=== PATIENT | female | born 1975 | race Caucasian/White ===

== ENCOUNTER 2023-05-01 07:33 | Outpatient (CLI) | payer OTHER ==
[2023-05-01 08:18] LABS: HEMATOCRIT 38.4 % (36.0-45.00); HEMOGLOBIN 12.8 g/dL (12.0-15.00); MEAN CELL VOLUME 87.7 fL (80.00-100.00); MEAN CORPUSCULAR HEMOGLOBIN 29.2 pg (27.00-32.0); MEAN CORPUSCULAR HGB CONC 33.3 g/dl (32.0-36.0); PLATELET COUNT 300 K/uL (150-450); RED BLOOD COUNT 4.38 M/uL (4.00-6.00); RED CELL DISTRIBUTION WIDTH 14.2 % (11.5-14.5)
[2023-05-01 08:20] LABS: PH,URINE 5.5 (5.0-8.0); URINE APPEARANCE Clear; URINE BILIRRUBIN Negative (NEGATIVE); URINE BLOOD Negative; URINE COLOR Yellow; URINE GLUCOSE Negative (NEGATIVE); URINE LEUKOCYTE Negative; URINE NITRATE Negative; URINE PROTEIN Negative (NEGATIVE); URINE UROBILINOGEN 0.2 E.U./dl
[2023-05-01 08:24] LABS: URINE BACTERIA 2649.6 uL (0.0-1933); URINE EPITHELIAL CELLS 23.8 uL (0.0-38.8); URINE RBC 10.6 uL (0.0-20.8); URINE WBC 14.6 uL (0.0-23.2)
[2023-05-01 08:54] LABS: ALBUMIN 3.7 gm/dL (3.4-5.0); ALKALINE PHOSPHATASE 76 U/L (50-136); ALT/SGPT 24 U/L (12-78); ANION GAP 3 (10.0-20.0); AST/SGOT 12 U/L (15-37); BILIRUBIN TOTAL 0.35 mg/dL (0.3-1.2); BLOOD UREA NITROGEN 14 mg/dL (7-18); BUN CREA RATIO 16 (7.0-25.0); CALCIUM 9.4 mg/dL (8.5-10.1); CARBON DIOXIDE 30 mEq/L (21-32); CHLORIDE 108 mmol/L (98-107); CHOLESTEROL 180 mg/dL (0-200); GFR 66.83; GLOBULINA 3.7 G/DL (2.4-3.5); GLUCOSE FASTING 117 mg/dL (65-100); HDL 61 mg/dl (40-60); LDL 105 mg/dl (0-130); OSMOLALITY SERUM 275 MOSM/KG (275-295); POTASSIUM 4.41 mEq/L (3.5-5.1); SODIUM 137 mmol/L (136-145); TOTAL PROTEIN 7.4 gm/dL (6.4-8.2); TRIGLYCERIDES 72 mg/dL (0-150); VLDL 14 (0-39)
[2023-05-01 09:11] LABS: C-REACTIVE PROTEIN < 0.29 MG/DL (0.00-0.29)
== END 2023-05-01 07:34 | disposition home or self-care (01) ==
LOC: LAB 07:33
PROVIDERS: ATTEND Obstetrics & Gynecology
DX: I10 Essential (primary) hypertension (principal); E03.8 Other specified hypothyroidism; E78.41 Elevated Lipoprotein(a); Z12.11 Encounter for screening for malignant neoplasm of colon; N30.00 Acute cystitis without hematuria; E55.9 Vitamin D deficiency, unspecified

== ENCOUNTER 2023-05-01 08:37 | Outpatient (CLI) | payer OTHER | END 2023-05-01 08:43 | disposition home or self-care (01) | LOC: MAMO-SONO 08:37 | PROVIDERS: ATTEND Obstetrics & Gynecology | DX: N60.11 Diffuse cystic mastopathy of right breast (principal); N60.12 Diffuse cystic mastopathy of left breast; R10.2 Pelvic and perineal pain ==

== ENCOUNTER → 2023-05-07 08:41 | Outpatient (CLI) | payer OTHER ==
[2023-05-07 11:56] LABS: ob NEGATIVE (NEGATIVE)
== END | disposition home or self-care (01) ==
LOC: LAB 08:41
PROVIDERS: ATTEND Obstetrics & Gynecology
DX: I10 Essential (primary) hypertension (principal); E03.8 Other specified hypothyroidism; Z12.11 Encounter for screening for malignant neoplasm of colon; N30.00 Acute cystitis without hematuria; E55.9 Vitamin D deficiency, unspecified

== ENCOUNTER 2024-09-16 07:43 | Outpatient (CLI) | payer OTHER ==
[2024-09-16 08:32] LABS: BASO % 0.6 % (0.1-1.2); EOS # 0.06 (0.04-0.54); EOS % 1.1 % (0.7-7.0); LYMPH # 1.30 (1.18-3.74); LYMPH % 24.6 % (19.3-53.1); MEAN PLATELET VOLUME 10.00 fl (9.4-12.4); MONO # 0.45 (0.24-0.82); MONO % 8.5 % (4.7-12.5); NEUT # 3.43 (1.56-6.13); NEUT % 64.8 % (34.0-71.1); RED CELL DISTRIBUTION WIDTH 13.2 % (11.6-14.4)
[2024-09-16 08:35] LABS: URINE APPEARANCE Clear; URINE BACTERIA 277.1 uL (0.0-1933); URINE BILIRRUBIN Negative (NEGATIVE); URINE BLOOD Negative; URINE COLOR Yellow; URINE EPITHELIAL CELLS 16.4 uL (0.0-38.8); URINE GLUCOSE Negative (NEGATIVE); URINE KETONE Negative (NEGATIVE); URINE LEUKOCYTE Negative; URINE NITRATE Negative; URINE PROTEIN Negative (NEGATIVE); URINE RBC 3.6 uL (0.0-20.8); URINE UROBILINOGEN 0.2 E.U./dl; URINE WBC 6.6 uL (0.0-23.2)
[2024-09-16 08:38] LABS: URINE CAST 0.00 uL (0.0-1.40)
[2024-09-16 09:41] LABS: ALT/SGPT 42.0 U/L (12-78); AST/SGOT 37.0 U/L (15-37); BILIRUBIN TOTAL 0.47 mg/dL (0.3-1.2); BUN CREA RATIO 16.0 (7.0-25.0); CHOL HDL RATIO 3.3 (0-5.0); CREATININE SERUM 0.7 mg/dL (0.55-1.02); GFR 88.57; GLOBULINA 3.8 G/DL (2.4-3.5); GLUCOSE FASTING 98.0 mg/dL (65-100); HDL 57.0 mg/dl (40-60); LDL 107.0 mg/dl (0-130); OSMOLALITY SERUM 279.0 MOSM/KG (275-295); TSH 1.58 uIU/mL (0.358-3.74); VLDL 24.0 (0-39)
[2024-09-17 09:11] LABS: hav igm Negative (Negative); hep b c Negative (Negative); hep b s ag Negative (Negative)
== END 2024-09-16 07:46 | disposition home or self-care (01) ==
LOC: LAB 07:43
PROVIDERS: ATTEND Obstetrics & Gynecology
DX: E55.9 Vitamin D deficiency, unspecified (principal); E78.00 Pure hypercholesterolemia, unspecified; N39.0 Urinary tract infection, site not specified; R73.01 Impaired fasting glucose; Z11.4 Encounter for screening for human immunodeficiency virus [HIV]; Z11.3 Encounter for screening for infections with a predominantly sexual mode of transmission

== ENCOUNTER 2024-09-16 08:25 | Outpatient (CLI) | payer OTHER | END 2024-09-16 08:28 | disposition home or self-care (01) | LOC: MAMO-SONO 08:25 → SONOGRAMA 08:25 → MAMO-SONO 08:28 → SONOGRAMA 08:28 | PROVIDERS: ATTEND Obstetrics & Gynecology | DX: N60.11 Diffuse cystic mastopathy of right breast (principal); N60.12 Diffuse cystic mastopathy of left breast; N92.0 Excessive and frequent menstruation with regular cycle ==